=== PATIENT | female | born 1975 | race Caucasian/White ===

== ENCOUNTER 2022-08-31 18:02 | Outpatient (CLI) | payer OTHER, SELFPAY ==
[2022-08-31 23:02] LABS: Chlamydia DNA Amplified* NOT DETECTED (No Detected); GC DNA Amplified* NOT DETECTED (No Detected)
== END 2022-08-31 18:03 | disposition home or self-care (01) ==
PROVIDERS: PCP Family Medicine; Visit Provider Nurse Practitioner Family
DX: N89.8 Other specified noninflammatory disorders of vagina (principal)
CPT/HCPCS: 87086; 87186; 87491; 87591

== ENCOUNTER 2022-09-17 12:28 | Outpatient (CLI) | payer OTHER, SELFPAY ==
[2022-09-17 13:40] LABS: Hemoglobin* 13.4 gm/dL (12.0-16.0)
[2022-09-17 13:47] LABS: Hemoglobin A1C* 5.3 % (0-5.6)
[2022-09-17 15:20] LABS: Free T4 Free Thyroxine* 1.06 ng/dL (0.70-1.85)
[2022-09-19 12:50] LABS: Estradiol Premenol Female 28 pg/mL
[2022-09-19 14:35] LABS: Follicle Stimulating Hormone 15.2 IU/L
[2022-09-19 16:53] LABS: Prolactin 6.2 ng/mL (2.8-29.2)
== END 2022-09-17 12:29 | disposition home or self-care (01) ==
PROVIDERS: PCP Family Medicine; Visit Provider Obstetrics & Gynecology
DX: D64.9 Anemia, unspecified (principal); N93.9 Abnormal uterine and vaginal bleeding, unspecified; Z13.1 Encounter for screening for diabetes mellitus
CPT/HCPCS: 82670; 83001; 83036; 84146; 84439; 84443; 85018

== ENCOUNTER 2022-09-24 14:17 | Outpatient (CLI) | payer OTHER, SELFPAY ==
--- NOTE | 2022-09-24 14:00 | CRLHL7_ITS ---
For Patients: As a result of the Century Cures Act, medical imaging exams and procedure reports are released immediately into your electronic medical record. You may view this report before your referring provider. If you have questions, please contact your health care provider. INDICATION: 47-year-old female. Reported history of uterine fibroids. Follow-up. TECHNIQUE: Transabdominal and transvaginal pelvic ultrasound. Grayscale and color spectral Doppler waveform analysis utilized. COMPARISON: None. Reportedly, the patient has a pelvic ultrasound from another country. Those images and report are not available. FINDINGS: The uterus measures 8.9 x 5.0 x 6.4 cm. The uterine myometrium is heterogeneous in overall echotexture. There are three intramural uterine fibroids. Specifically, there is a 1.5 x 1.5 x 1.6 cm submucosal fibroid along the posterior upper uterine body. There is a small intramural fibroid within the upper right uterine body measuring 1.8 x 1.6 x 1.6 cm. A third uterine fibroid near the left uterine cornua measures 2.9 x 2.4 x 2.4 cm. The right ovary measures 3.4 x 2.9 x 1.6 cm. The left ovary measures 4.1 x 3.8 x 2.5 cm. The left ovary contains a simple cyst measuring 3.3 x 2.5 x 1.5 cm. Blood flow is documented in the ovaries both arterial and venous. No torsion. No free fluid in the cul-de-sac. IMPRESSION: 1. Three uterine fibroids. There is a submucosal fibroid within the posterior midline upper uterine body measuring 1.5 x 1.5 x 1.6 cm which does have mass effect upon the endometrial stripe displacing it anteriorly. 2. Two additional intramural fibroids as described. 3. Simple cyst left ovary. 4. No torsion. Dictated by Liban Murcia MD @ 09/25/2022 1:39:06 PM (Electronically Signed)
== END 2022-09-24 14:18 | disposition home or self-care (01) ==
PROVIDERS: PCP Family Medicine; Visit Provider Obstetrics & Gynecology
DX: D25.0 Submucous leiomyoma of uterus (principal); N83.202 Unspecified ovarian cyst, left side
CPT/HCPCS: 76830; 76856

== ENCOUNTER 2022-10-24 09:11 | Outpatient (CLI) | payer OTHER, SELFPAY ==
--- NOTE | 2022-10-24 09:15 | CRLHL7_ITS ---
For Patients: As a result of the Cures Act, medical imaging exams and procedure reports are released immediately into your electronic medical record. You may view this report before your referring provider. If you have questions, please contact your health care provider. BILATERAL SCREENING MAMMOGRAM WITH COMPUTER-AIDED DETECTION AND TOMOSYNTHESIS TECHNIQUE: CC and MLO views were obtained. These mammographic images have been obtained using full-field digital technique. These mammographic images were interpreted with the benefit of computer-aided detection. Breast Tomosynthesis was used in this interpretation. COMPARISON FILM: No comparison available ([facility]). FINDINGS: The breasts are heterogeneously dense, which may obscure small masses IMPRESSION: There is no radiographic evidence for malignancy. ASSESSMENT: BI-RADS Category 1: Negative RECOMMENDATION: Routine screening mammogram in 1 year. A lay language report of this examination will be provided to the patient. Ted Solorio M.D. Diagnostic Radiologist [email or web address] Transcribed: 4:34 pm DW/Dictated by: Ted Solorio MD @ 10/24/2022 12:09:00 PM (Electronically Signed)
== END 2022-10-24 09:12 | disposition home or self-care (01) ==
LOC: MAMMO 09:11
PROVIDERS: PCP Family Medicine; Visit Provider Obstetrics & Gynecology
DX: Z12.31 Encounter for screening mammogram for malignant neoplasm of breast (principal); R92.2 Inconclusive mammogram
CPT/HCPCS: 77063; 77067

== ENCOUNTER 2022-10-30 08:47 | Outpatient (CLI) | payer OTHER, SELFPAY ==
--- NOTE | 2022-10-30 11:30 | W.ANESCHARGE ---
Anesthesia Charges Start Date/Time Anesthesia Start Date: 10/30/22 Anesthesia Start Time: 11:00 Stop Date/Time Anesthesia Stop Date: 10/30/22 Anesthesia Stop Time: 11:30 Summary Emergency: No
--- NOTE | 2022-10-30 11:44 | W.ANESCHARGE ---
Anesthesia Charges Start Date/Time Anesthesia Start Date: 10/30/22 Anesthesia Start Time: 11:00 Stop Date/Time Anesthesia Stop Date: 10/30/22 Anesthesia Stop Time: 11:30 Summary Emergency: No
== END 2022-10-30 08:48 | disposition home or self-care (01) ==
PROVIDERS: PCP Family Medicine; Visit Provider Surgery
DX: Z12.11 Encounter for screening for malignant neoplasm of colon (principal)
CPT/HCPCS: 00811; 00812; 45378; 99153; J2250; J3010

== ENCOUNTER 2022-12-24 20:22 | Outpatient (CLI) | payer MEDICAID, SELFPAY ==
--- NOTE | 2023-01-01 08:48 | W.PM.SLEEP ---
Sleep Study Details Details Interpreting Provider: Reid Jennings MD Date of Sleep Study: 12/24/22 Sleep Study Details: STUDY TYPE:? Hospital-based ? BMI:? 23.9 ORDERING PROVIDER:? Allabouni INDICATION:? Concerns about sleep apnea ? SLEEP SUMMARY:? Total sleep time 454 minutes, efficiency 95.5, latency 2.5, REM latency 108 Arousal index 17 RESPIRATORY SUMMARY:? Mean oxygen awake 95 asleep 95 minimum 88. 0.1 minute oxygen between 80 and 88% AHI 2.6, RDI 7.8 Supine AHI 6.1, supine REM AHI 9.2 Nonsupine RDI 6.3 PERIODIC LIMB MOVEMENTS OF SLEEP:? None noted CARDIAC:? Awake 78, asleep 69. No arrhythmias noted IMPRESSION:? This study demonstrates mild obstructive sleep apnea with an RDI of 7.8. The overall AHI however is within normal limits at 2.6. There was significant supine position dependency and REM dependency. RECOMMENDATION: If the patient is symptomatic treatment options could consist of CPAP AutoSet 4-17 or dental appliance or airway expansion surgery.
== END 2022-12-24 20:23 | disposition home or self-care (01) ==
PROVIDERS: PCP Family Medicine; Visit Provider Family Medicine
DX: G47.33 Obstructive sleep apnea (adult) (pediatric) (principal)
CPT/HCPCS: 95810

== ENCOUNTER 2023-08-08 09:30 | Outpatient (RCR) | payer MEDICAID, OTHER, SELFPAY | END 2023-12-06 23:59 | disposition home or self-care (01) | PROVIDERS: PCP Family Medicine; Visit Provider Obstetrics & Gynecology | DX: M46.1 Sacroiliitis, not elsewhere classified (principal); G89.29 Other chronic pain; M53.3 Sacrococcygeal disorders, not elsewhere classified | CPT/HCPCS: 97110; 97140; 97163 ==

== ENCOUNTER 2023-11-15 08:34 | Outpatient (CLI) | payer MEDICAID, SELFPAY | END 2023-11-15 08:35 | disposition home or self-care (01) | LOC: NFLDREF 13:25 | PROVIDERS: PCP Family Medicine; Referring Provider Family Medicine; Visit Provider Family Medicine | DX: D64.9 Anemia, unspecified (principal); Z13.1 Encounter for screening for diabetes mellitus; Z13.6 Encounter for screening for cardiovascular disorders | CPT/HCPCS: 80061; 82947 ==

== ENCOUNTER 2023-12-30 20:48 | Outpatient (CLI) | payer MEDICAID, SELFPAY ==
--- NOTE | 2024-01-21 12:55 | W.PM.SLEEP ---
Sleep Study Details Details Interpreting Provider: Michaela Date of Sleep Study: 12/30/23 Sleep Study Details: STUDY TYPE:? Hospital-based attended ? BMI:? 25 ORDERING PROVIDER:? Taj INDICATION:? Concerns about sleep apnea ? SLEEP SUMMARY:? 374.5 minutes total sleep time RESPIRATORY SUMMARY:? Mean oxygen awake 95 asleep 95 minimum 87 0.2 minutes oxygen between 80 and 88% AHI 6.4 with minimal positional variation. Supine REM AHI is 2 PERIODIC LIMB MOVEMENTS OF SLEEP:? Index 8, index with arousal 0 CARDIAC:? Awake 66 asleep 65 no arrhythmias noted IMPRESSION:? Mild obstructive sleep apnea RECOMMENDATION: Treatment options include CPAP AutoSet 4-17, dental appliance and/or airway expansion surgery.
== END 2023-12-30 20:49 | disposition home or self-care (01) ==
LOC: SLEEP 20:49
PROVIDERS: PCP Family Medicine; Visit Provider Family Medicine
DX: G47.33 Obstructive sleep apnea (adult) (pediatric) (principal)
CPT/HCPCS: 95810

== ENCOUNTER 2024-03-24 10:00 | Outpatient (RCR) | payer MEDICAID, SELFPAY ==
--- NOTE | 2023-12-02 19:44 | OT.OPOE ---
OT Outpatient Ortho Eval OT Outpatient Ortho Eval* Start: 12/02/23 19:03 Freq: Status: Active Protocol: Document 12/02/23 19:04 LCN (Rec: 12/02/23 19:40 LCN [id number]) E-signed By Mary Calvin, OTR/L, CLT OT OP Ortho Eval Details Complexity Complexity Low Insurance Information Insurance Information Medicaid Outpatient History/Precautions Current Condition/Medical Diagnosis Referring Provider Job Vang Treatment Diagnosis B index finger stiffness Date of Onset 11/20/23 Other Conditions Prior PT for SI/ abdominal pain issues 11/28/22 ( SI slips out L occasional muscle spasms in L. Strategies/HEP still helpful). I've always had a sensitive system to trauma, first noted with mandibular fracture/ kicked by horse at age 11. Has inflammatory pattern noted for GI, issues, dry cuticles, infertility, h/o 30# weight gain unexplained in one year, H/O viral illness per Dr. العلي (could benefit from immunology, rheumatology consults, functional medicine) . Had IVF and myomectomy Aug/ Sep 2020. Still hoping to have egg donor for fertility issues. Has not been able to do the gluten free/ low sugar anti inflammtory recmmendations put forth with Dr. العلي. Medical/Functional History Medical History Reviewed Yes: per pt report Prior Level of Function/Mobility Pt notes she carries a large emotional stress load, moved to [place] 8 months ago. There was a job/insurance change mentioned. Was lving in [facility] for 5 yrs prior and [place], [place] locations before that. 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 (Plans return this mo) Critical Job Demands Pull,Lift,Prolonged Standing Other Critical Job Demands Does use her feet for many of her technqiues. Hobbies Hopes to get land soon. Fitness Very irregular. Ortho Subjective Subjective Subjective Sarah has been having general hand swelling at MCP to PIP's for all of her digits, with new onset stiffness at B index fingers ( R moreso) in the last 6 months. B hand X rays not showing OA changes. Tried Voltaren not helpful. Has several self mobilizing strategies using some international tools ( mini foam roller/extra firm, cork balls for intrinsics, thenar trigger point silicone ball with prong, self tractioning with yoga , forearm self mobilzations using heel pressure). Pain Assessment Pain Present Pain Present Pain Reported Location L index finger Description Tightness,Pressure,Dull, Achy Intensity 2 R index finger Description Tightness,Pressure,Throbbing, Pulling,With Movement Intensity 4 Range of Motion and Strength Elbow/Forearm Range of Motion and Strength Elbow/Forearm Range of Motion and WNL for all wrist , elbow Strength planes. Volar wrist has gritty thickness at IF/MF tendon areas, MCP heads and sore in wrist flexors. Hand/Finger/Thumb Range of Motion and Strength Hand/Finger/Thumb Range of Motion and Composite flexion of R IF to 2 Strength .2 cm R with 4/10 pn at volar PIP and .3 cm L. Does have functional hand osseous changes noted w mild CMC squaring B, L Adductor tightness and Z pattern starting ( MP hyper extension/ IP hyperflexion to 80+ degrees (where 45 is WNL). MCP flexion to 100-105 for all digits, suspect intrinsic weakness. No other hypermobility pattern. Good strength for circus agent, recinos pinch, 2 SD BNL for 3 pt pinch with her Z pattern thumb mechanics with 2/10 pn at 1st dorsal compartment, also 3/10 tender here with R circus agent. B opposition 10/10 on Kepangi scale; Retropulsion is 2/4 L and 4/4 R, tight at L thenar adductor. Upper Extremity Special Tests Degenerative Arthritis Hand Trapeziometacarpal Joint Grind Test Negative Left,Negative Right Upper Extremity Special Tests Comments Comments Scrub test negative B, good stability, no crepitus, good circumduction arc. Edema at R wrist is 17.5 cm and L is 16.8 cm OT Problems Problems Problems Decreased Strength,Gripping, Pinching Problems Comments Pouring motions with milk and door knob rotation Other Problems Writing,Opening Containers, Dressing,Computer,Fasteners Assessment Assessment Assessment Charleen is having hand stiffness, edema in MCP and PIP's across both hands, R IF most affected, stiff and guarded. Also has some functional joint mechanics changes in B thumbs (Z pattern 3 pt pinch weakness) and intrinsic weakness that can be contributing to her daily hand pain and difficulty with gripping, pinching tasks in her daily activities. he would benefit from skilled OT to address these areas. Occupational Therapy Treatment Plan - OP Potential Rehabilitation Potential Good Set Goals Goals Set with Patient Yes Goals Goals In 8 weeks, pt will demonstrate:? 1) Decreased pn to <2/10 80% of the time with sustained gripping, opening food packaging, writing and pinching during food prep, massage tasks. 2) I HEP for stretching, gradual strengthening and self mgmt strategies. 3) improved B 3 point strength to 14# w improved O mechanics with pn < 1/10. 4)??Pt to be fit with functional bracing (for CMC/TH ) and use adaptive strategies to protect joint integrity to support less pain with ADL. Treatment Plan Treatment Plan Evaluation,Edema Control,Joint Mobilization,Manual Therapy, Splinting,Ultrasound, Therapeutic Exercise,Self Care /Home Management,Education Expected Frequency 1-2x Week Expected Duration 6-8 Weeks Home Program Home Program Home Program Initiated Home Program Specifics Compression glove, contrast baths, tendon glides. Recertification Information Recertification Information Initial Certification Date 12/02/23 Recertification Due Date 03/01/24 Provider Signature Shows Agreement With POC & Medical Necessity Physician Comment/Change Comment or Changes Physician NPI Number #
--- NOTE | 2024-03-24 17:48 | OT.OPODN ---
OT Outpatient Ortho Daily Note OT Outpatient Ortho Daily Note* Start: 12/02/23 19:03 Freq: Status: Active Protocol: Document 03/24/24 17:36 LCN (Rec: 03/24/24 17:47 LCN [id number]) E-signed By Mary Calvin, OTR/L, CLT Type of Note Type of Note Type of Note Daily Note,Discharge Note,Note to MD Visit Number 7 Insurance Information Insurance Information Medicaid Outpatient History/Precautions Current Condition/Medical Diagnosis Referring Provider Job Vang Treatment Diagnosis B index finger stiffness Date of Onset 11/20/23 Other Conditions Prior PT for SI/ abdominal pain issues Chris 11/28/22 ( SI slips out L occasional muscle spasms in L. Strategies/HEP still helpful). I've always had a sensitive system to trauma, first noted with mandibular fracture/ kicked by horse at age 11. Has inflammatory pattern noted for GI, issues, dry cuticles, infertility, h/o 30# weight gain unexplained in one year, H/O viral illness per Dr. العلي (could benefit from immunology, rheumatology consults, functional medicine) . Had IVF and myomectomy Sep 2020. Still hoping to have egg donor for fertility issues. Has not been able to do the gluten free/ low sugar anti inflammtory recmmendations put forth with Dr. العلي. Medical/Functional History Medical History Reviewed Yes: per pt report Prior Level of Function/Mobility Pt notes she carries a large emotional stress load, moved to [place] 8 months ago. There was a job/insurance change mentioned. Was lving in [place] for 5 yrs prior and [place], [place] locations before that. 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 (Plans return this mo) Critical Job Demands Pull,Lift,Prolonged Standing Other Critical Job Demands Does use her feet for many of her technqiues. Hobbies Hopes to get land soon. Fitness Very irregular. Ortho Subjective Subjective Subjective Pt doing better with self IASTM, has new salo graston like tool, doing well with CMC to IF self mobilizations. Box wrench works better between digits. Residual stiffness at R IF PIP, but good passively. Gripping and pinching less tender. IS able to self mobilize affected IF MCP and PIP areas using self massage tools when they stiffen up between sets of yard chores. Pain Assessment Pain Present Pain Present Pain Reported Location L index finger Description Tightness,Pressure,Dull, Achy Intensity 0 R index finger Description Tightness,Pressure,Throbbing, Pulling,With Movement Intensity 1 OT OP Daily Ortho Note/Assessment Manual Therapy Manual Therapy Minutes (minutes) 40 Manual Therapy Comments OTR completes IASTM with Graston #6 to mobilize soft tissue surrounding joint capsule,?ligament structures and wrist flexor and extensor muscle groups to support freedom of movement and healing of structures of R distal forearm, flexor muscle bulk, palmar /thenar eminence, edema thickness at MCP head, medial shaft of IF and extensor compartment of digit. Cont LLPS with joint oscillations in closed chain , hook to rolled fist and table top to flat fist for R MF and IF. Total Occupational Therapy Time Occupational Therapy Minutes 40 Home Program Home Program Home Program Initiated Home Program Specifics 12/24/23--red medium putty intrinsics 12/16/23-- spring ring self mobilizations of IF shaft, putty red with gripping alternating 2 pt andwith good O and recinos pinch . 12/02/23--Compression glove, contrast baths, tendon glides. Range of Motion and Strength Elbow/Forearm Range of Motion and Strength Elbow/Forearm Range of Motion and WNL for all wrist , elbow Strength planes. Volar wrist has gritty thickness at IF/MF tendon areas, MCP heads and sore in wrist flexors. Hand/Finger/Thumb Range of Motion and Strength Hand/Finger/Thumb Range of Motion and Composite flexion of R IF to 2 Strength .2 cm R with 4/10 pn at volar PIP and .3 cm L. Does have functional hand osseous changes noted w mild CMC squaring B, L Adductor tightness and Z pattern starting ( MP hyper extension/ IP hyperflexion to 80+ degrees (where 45 is WNL). MCP flexion to 100-105 for all digits, suspect intrinsic weakness. No other hypermobility pattern. Good strength for spraying machine operator, recinos pinch, 2 SD BNL for 3 pt pinch with her Z pattern thumb mechanics with 2/10 pn at 1st dorsal compartment, also 3/10 tender here with R spraying machine operator. B opposition 10/10 on Kepangi scale; Retropulsion is 2/4 L and 4/4 R, tight at L thenar adductor. Goniometric Comments Goniometric Comments Goniometric Comments 03/24/24-- Composite digit flexion IF/ MF/RF/SF pre OT is .7 / .4 / .6 / 0 cm and post OT is .4/.4/.6/ 0. Market Consultant and pinch testing no longer tender , stable strength at WNL level for age/gender 70# R and 75# L. 02/04/24--Market Consultant and pinch stable. Improved composite flexion in 1.2 cm at start and .5 cm by end of session. 12/24/23-- Improved Composite flexion of R IF from 1.2 to. 5 cm with 2<1/10 pn at volar IF. Improved spraying machine operator pinch to 70 # R, and recinos pinch 20# (both w 1-2/10 pressure on rebound after sustained maximal spraying machine operator). L spraying machine operator 78#/recinos pinch 18, No pain. 12/16/22--Improved Composite flexion of R IF from 1.2 to.7 cm with 2/10 pn at volar PIP after US/ IASTM Upper Extremity Special Tests Degenerative Arthritis Hand Trapeziometacarpal Joint Grind Test Negative Left,Negative Right Upper Extremity Special Tests Comments Comments Scrub test negative B, good stability, no crepitus, good circumduction arc. Edema at R wrist is 17.5 cm and L is 16.8 cm OT Problems Problems Problems Decreased Strength,Gripping, Pinching Problems Comments Pouring motions with milk and door knob rotation Other Problems Writing,Opening Containers, Dressing,Computer,Fasteners Patient Potential Good Assessment Assessment Assessment Pt and OTR agree, she is ready for d/c as her stiffness in R IF is much easier to self manage and can now toelrate downward facing dog better. Doing well with her self IASTM between sessions. Charleen is having hand stiffness, edema in MCP and PIP's across both hands, R IF most affected, stiff and guarded. Also has some functional joint mechanics changes in B thumbs (Z pattern 3 pt pinch weakness) and intrinsic weakness that can be contributing to her daily hand pain and difficulty with gripping, pinching tasks in her daily activities. he would benefit from skilled OT to address these areas. Occupational Therapy Treatment Plan - OP Potential Rehabilitation Potential Good Set Goals Goals Set with Patient Yes Goals Goals In 8 weeks, pt will demonstrate:? 1) Decreased pn to <2/10 80% of the time with sustained gripping, opening food packaging, writing and pinching during food prep, massage tasks. (GOAL MET ) 2) I HEP for stretching, gradual strengthening and self mgmt strategies. 3) improved B 3 point strength to 14# w improved O mechanics with pn < 1/10. ( GOAL MET 03/24/24) 4)??Pt to be fit with functional bracing (for CMC/TH ) and use adaptive strategies to protect joint integrity to support less pain with ADL. ( no longer using 03/24/24) Treatment Plan Treatment Plan Evaluation,Edema Control,Joint Mobilization,Manual Therapy, Splinting,Ultrasound, Therapeutic Exercise,Self Care /Home Management,Education Expected Frequency 1-2x Week Expected Duration 6-8 Weeks Occupational Therapy Billing Units Treatment Minutes Timed Treatment Minutes 40 Total Treatment Minutes 40 Billing Units Manual Therapy 3 Discharge Note Discharge Note Discharge Summary Per goals above Date of First Visit for Therapy 12/02/23 Date of Last Visit for Therapy 03/24/24 Initial Primary Functional Limitations/ [place] has been having general Concerns hand swelling at MCP to PIP's for all of her digits, with new onset stiffness at B index fingers ( R moreso) in the last 6 months. B hand X rays not showing OA changes. Tried Voltaren not helpful. Has several self mobilizing strategies using some international tools ( mini foam roller/extra firm, cork balls for intrinsics, thenar trigger point silicone ball with prong, self tractioning with yoga , forearm self mobilzations using heel pressure). Interventions Provided During Treatment Evaluation,Edema Control,Joint Mobilization,Manual Therapy, Ultrasound,Therapeutic Exercise,Self Care/Home Management,Education Recommendations/Reason for Discharge Met All Therapy Goals
== END 2024-03-25 07:37 | disposition home or self-care (01) ==
PROVIDERS: PCP Family Medicine; Visit Provider Family Medicine
DX: M25.642 Stiffness of left hand, not elsewhere classified (principal); M25.641 Stiffness of right hand, not elsewhere classified; Z51.89 Encounter for other specified aftercare
CPT/HCPCS: 97035; 97110; 97140; 97165; 97535; X5282

== ENCOUNTER 2024-08-12 14:56 | Outpatient (CLI) | payer MEDICAID, SELFPAY ==
--- NOTE | 2024-08-12 15:00 | CRLHL7_ITS ---
For Patients: As a result of the Century Cures Act, medical imaging exams and procedure reports are released immediately into your electronic medical record. You may view this report before your referring provider. If you have questions, please contact your health care provider. CLINICAL HISTORY: Infertility TECHNIQUE: 2D keller scale and color Doppler images were acquired of the pelvis using a transvaginal approach. Comparison Not available FINDINGS: Left mid/superior uterine fibroid measures 2.0 x 1.8 x 1.7 cm. Posterior fibroid measures 1.2 x 0.8 x 1.1 cm. Right mid uterine fibroid measures 1.6 x 1.5 x 1.6 cm. Midline fibroid measures 1.5 x 1.5 x 1.3 cm. Hypoechoic nabothian cysts present within the endocervix measuring 1.2 x 0.8 x 1.1 cm. The endometrial lining measures 7 millimeters. The uterus measures 8.1 x 4.9 x 6.1 cm. The left ovary measures 2.1 x 2.8 x 2.7 cm in size and the right ovary measures 3.5 x 2.2 x 2.1 cm. The ovaries demonstrate normal arterial and venous blood flow on color Doppler analysis. There are no suspicious fluid collections within the cul-de-sac. IMPRESSION: Multiple uterine fibroids measuring up to 2.0 cm. 1.5 cm midline fibroid may be submucosal. Adjacent endometrium measures 7 millimeters. Few, if any, ovarian follicles noted. Dictated by Ted Solorio MD @ 08/13/2024 9:44:06 AM (Electronically Signed)
== END 2024-08-12 14:57 | disposition home or self-care (01) ==
LOC: US 14:56
PROVIDERS: PCP Family Medicine; Visit Provider Obstetrics & Gynecology
DX: N97.9 Female infertility, unspecified (principal); D25.0 Submucous leiomyoma of uterus; N83.00 Follicular cyst of ovary, unspecified side
CPT/HCPCS: 76830

== ENCOUNTER 2024-08-13 13:43 | Outpatient (CLI) | payer MEDICAID, SELFPAY ==
--- NOTE | 2024-08-13 14:44 | P.PCN_ITS ---
Procedure Note Time Seen by Provider: 14:44 Date Seen: 08/13/24 Date of procedure: 08/13/24 Will [facility] bill your pro fee for this procedure?: Yes Procedure: Preoperative diagnosis: 49-year-old nulligravid woman with uterine fibroids, dysmenorrhea and fertility testing Postoperative diagnosis: Same with no evidence of fibroid impingement into the endometrium. Procedure: Saline sonohysterogram Anesthesia: None Procedure description: The patient was placed in the dorsal lithotomy position. A sterile, bivalve, open-sided, metal speculum was advanced into the vaginal canal to visualize the cervix. The anterior lip of the cervix was grasped with a single-tooth tenaculum. The cervical os was dilated with a flexible cervical dilator. A sonohysterogram catheter was then advanced into the uterus and the balloon dilated with 3 mL of saline. The tenaculum and speculum were then removed from the vagina. Of vaginal ultrasound was then performed while saline was infused into the uterus through the sonohysterogram catheter. A total of 20 mL of saline was used. The patient tolerated this procedure moderately well with significant cramping. The sonohysterogram catheter was then removed. Sponge, lap and instrument counts were correct x2 at the end of the procedure. The patient will await the final sonohysterogram results once the radiologist has completed their documentation. Anesthesia: none Estimated blood loss (mL): 1 Pathology: none sent Condition: stable Disposition: other (Outpatient procedure)
== END 2024-08-13 13:44 | disposition home or self-care (01) ==
LOC: US 13:43
PROVIDERS: PCP Family Medicine; Visit Provider Obstetrics & Gynecology
DX: N97.9 Female infertility, unspecified (principal); D25.0 Submucous leiomyoma of uterus; N94.6 Dysmenorrhea, unspecified; N94.4 Primary dysmenorrhea
CPT/HCPCS: 58340; 76831; A4649

== ENCOUNTER 2024-09-03 09:28 | Outpatient (CLI) | payer MEDICAID, SELFPAY ==
--- NOTE | 2024-09-03 09:45 | CRLHL7_ITS ---
For Patients: As a result of the Century Cures Act, medical imaging exams and procedure reports are released immediately into your electronic medical record. You may view this report before your referring provider. If you have questions, please contact your health care provider. BILATERAL SCREENING MAMMOGRAM WITH COMPUTER-AIDED DETECTION AND TOMOSYNTHESIS TECHNIQUE: CC and MLO views were obtained. These mammographic images have been obtained using full-field digital technique. These mammographic images were interpreted with the benefit of computer-aided detection. Breast Tomosynthesis was used in this interpretation. COMPARISON FILM: 10/24/22. FINDINGS: The breasts are heterogeneously dense, which may obscure small masses IMPRESSION: There is no radiographic evidence for malignancy. ASSESSMENT: BI-RADS Category 1: Negative RECOMMENDATION: Routine screening mammogram in 1 year. A lay language report of this examination will be provided to the patient. Ted Solorio M.D. Diagnostic Radiologist [email or web address] Transcribed: 2:40 p.diana rao/Dictated by: Ted Solorio MD @ 09/08/2024 10:45:00 AM (Electronically Signed)
== END 2024-09-03 09:29 | disposition home or self-care (01) ==
LOC: MAMMO 09:29
PROVIDERS: PCP Family Medicine; Visit Provider Family Medicine
DX: Z12.31 Encounter for screening mammogram for malignant neoplasm of breast (principal); R92.333 Mammographic heterogeneous density, bilateral breasts
CPT/HCPCS: 77063; 77067

== ENCOUNTER 2025-03-18 09:40 | Outpatient (CLI) | payer MEDICAID, SELFPAY | END 2025-03-18 09:41 | disposition home or self-care (01) | LOC: NFLDREF 03-23 23:46 | PROVIDERS: PCP Family Medicine; Referring Provider Family Medicine; Visit Provider Family Medicine | DX: E78.5 Hyperlipidemia, unspecified (principal) | CPT/HCPCS: 80061 ==